=== PATIENT | male | born 1995 | race Caucasian/White ===

== ENCOUNTER 2017-11-24 23:31 | Emergency (ER) | payer OTHER ==
[~2017-11-24] VITALS: Ht 182.9 cm; Wt 79.2 kg
[2017-11-24 23:36] VITALS: TEMP 36.7; Ht 182.9 cm; Wt 79.2 kg
[2017-11-24] MEDS ORDERED: CEFTRIAXONE SOD 350MG/ML 1 GM VIAL IM ONE (23:45)
[2017-11-25] MEDS ORDERED: LORAZEPAM 2 MG/ML 1 ML VIAL IV STA (00:01)
[2017-11-25 00:10] VITALS: O2SAT 97
[2017-11-25 00:18] LABS: BASO % 0.4 %; BASO ABS # 0.03 K/uL (0-0.2); EOS % 4.8 %; EOS ABS # 0.39 K/uL (0-0.5); HEMATOCRIT 42.3 % (42-52); HEMOGLOBIN 14.6 g/dL (14.0-18.0); IG# 0.02 K/uL (0.00-0.02); LYMPH % 27.7 %; LYMPH ABS # 2.26 K/uL (1.2-3.4); MEAN CELL VOLUME 92.2 fL (80-100); MEAN CORPUSCULAR HEMOGLOBIN 31.8 pg (25-34); MEAN CORPUSCULAR HGB CONC 34.5 g/dl (32-36); MEAN PLATELET VOLUME 10.5 fL (7.4-10.4); MONO % 8.6 %; NEUT % 58.3 %; NEUT ABS # 4.76 K/uL (1.4-6.5); PLATELET COUNT 262 K/uL (130-400); RED CELL DISTRIBUTION WIDTH CV 12.9 % (11.5-14.5); RED CELL DISTRIBUTION WIDTH SD 43.1 fL (36.4-46.3); WHITE BLOOD COUNT 8.16 K/uL (4.8-10.8)
[2017-11-25 00:26] LABS: ALBUMIN 4.4 gm/dl (3.4-5.0); ALT/SGPT 22 U/L (12-78); AST/SGOT 19 U/L (15-37); BLOOD UREA NITROGEN 9 mg/dl (7-18); CALCIUM 9.4 mg/dl (8.5-10.1); CARBON DIOXIDE 25 mmol/L (21-32); CREATININE 1.09 mg/dl (0.60-1.40); GLUCOSE 93 mg/dl (70-99); POTASSIUM 3.4 mmol/L (3.5-5.1); SODIUM 141 mmol/L (136-145)
[2017-11-25 00:37] LABS: ALKALINE PHOSPHATASE 139 U/L (45-117); CKMB 1.8 ng/ml (0.5-3.6); TOTAL PROTEIN 8.1 gm/dl (6.4-8.2)
[2017-11-25 00:54] VITALS: BP 120/60; PULSE 68; O2SAT 98
--- NOTE | 2017-11-25 05:08 | EMERGENCY ROOM VISIT NOTE ---
History Report prepared by Cassidy: Venus Lerma Under the Supervision of: Dr. Janie Ortiz D.O. First contact with patient: 23:40 Chief Complaint: CARDIAC ASSESSMENT Stated Complaint: TIGHTNESS IN CHEST History of Present Illness The patient is a 22 year old male who presents to the Emergency Room for a cardiac assessment secondary to chest tightness that began a few weeks ago. The patient states that his discomfort is usually in the middle of his chest. He notes that during his episodes his hands begin to tingle and he feels anxious. The patient reports that he went to urgent care a couple weeks ago, noting that the doctor suggested he might have a heart murmur. He notes that he has an appointment with a instrumentation supervisor and will be getting an ultrasound in 2 days. The patient states that he has a family history hypertension, CHF, heart murmurs , and heart attack. He notes that he consumes a lot of caffeine, stating it is mostly from coffee and energy drinks. The patient states that his symptoms seem to be random, but occur mostly on days after he has been drinking. He reports that he drinks 3-4 times a week, noting that the last time he consumed alcohol was last night. The patient denies any drug use. He had a chest x-ray performed at Urgent Care, which had normal results. Source of History: patient Onset: several weeks ago Position: chest Quality: other (chest tightness) Timing: other (persistent) Associated Symptoms: + chest pain (middle of chest) Note: Associated symptoms include hands tingling and feeling anxious. Review of Systems See HPI for pertinent positives & negatives. A total of 10 systems reviewed and were otherwise negative. Past Medical & Surgical Medical Problems: (1) No Known Active Medical Problems Family History FH: CHF (congestive heart failure) FH: heart attack Heart disease Heart murmur Social History Smoking Status: Never Smoker Alcohol Use: heavy (3-4) Drug Use: none Marital Status: single Housing Status: lives with roommate Occupation Status: student Current/Historical Medications No Active Prescriptions or Reported Meds Allergies Coded Allergies: Amoxicillin (Verified Allergy, Unknown, HIVES, 11/25/17) Physical Exam Vital Signs Date Time Temp Pulse Resp B/P (MAP) Pulse Ox O2 Delivery O2 Flow Rate FiO2 11/25/17 00:54 68 16 120/60 98 Room Air 11/25/17 00:10 97 Room Air 1/29/18 00:10 98 Room Air 11/25/17 00:10 69 20 127/82 97 Room Air 11/25/17 00:09 65 11/24/17 23:36 36.7 77 18 146/86 97 Room Air Physical Exam HEENT: Head - normocephalic and atraumatic Pupils are equal, round, and reactive to light. Extraocular eye muscles are intact, and sclera are anicteric. Nose - moist nasal mucosa without discharge. Mouth - moist buccal mucosa. Oropharynx is nonerythematous and there is no tonsillar exudate or edema noted. Neck: Supple; no JVD, nuchal rigidity, cervical lymphadenopathy, or auscultated bruits. Heart: Regular rate and rhythm. There is a normal S1 and S2 with no murmurs, clicks, or gallops appreciated. Lungs: Clear to auscultation bilaterally with no wheezes, rales, or rhonchi. Abdomen: Soft, completely nontender, nondistended, with good bowel sounds. There are no palpable pulsatile masses or hepatosplenomegaly. There is no guarding, rigidity, or rebound noted. Extremities: No evidence of cyanosis, clubbing, or edema. There are easily palpable peripheral pulses. Skin: warm and dry with good turgor and no rashes. Medical Decision & Procedures Laboratory Results 11/24/17 23:50 Red Blood Count 4.59, Mean Corpuscular Volume 92.2, Mean Corpuscular Hemoglobin 31.8, Mean Corpuscular Hemoglobin Concent 34.5, Mean Platelet Volume 10.5, Neutrophils (%) (Auto) 58.3, Lymphocytes (%) (Auto) 27.7, Monocytes (%) (Auto) 8.6, Eosinophils (%) (Auto) 4.8, Basophils (%) (Auto) 0.4, Neutrophils # (Auto) 4.76, Lymphocytes # (Auto) 2.26, Monocytes # (Auto) 0.70, Eosinophils # (Auto) 0.39, Basophils # (Auto) 0.03 11/24/17 23:50 Test 11/24/17 23:50 White Blood Count 8.16 K/uL (4.8-10.8) Red Blood Count 4.59 M/uL (4.7-6.1) Hemoglobin 14.6 g/dL (14.0-18.0) Hematocrit 42.3 % (42-52) Mean Corpuscular Volume 92.2 fL (80-100) Mean Corpuscular Hemoglobin 31.8 pg (25-34) Mean Corpuscular Hemoglobin Concent 34.5 g/dl (32-36) Platelet Count 262 K/uL (130-400) Mean Platelet Volume 10.5 fL (7.4-10.4) Neutrophils (%) (Auto) 58.3 % Lymphocytes (%) (Auto) 27.7 % Monocytes (%) (Auto) 8.6 % Eosinophils (%) (Auto) 4.8 % Basophils (%) (Auto) 0.4 % Neutrophils # (Auto) 4.76 K/uL (1.4-6.5) Lymphocytes # (Auto) 2.26 K/uL (1.2-3.4) Monocytes # (Auto) 0.70 K/uL (0.11-0.59) Eosinophils # (Auto) 0.39 K/uL (0-0.5) Basophils # (Auto) 0.03 K/uL (0-0.2) RDW Standard Deviation 43.1 fL (36.4-46.3) RDW Coefficient of Variation 12.9 % (11.5-14.5) Immature Granulocyte % (Auto) 0.2 % Immature Granulocyte # (Auto) 0.02 K/uL (0.00-0.02) Anion Gap 11.0 mmol/L (3-11) Est Creatinine Clear Calc Drug Dose 117.7 ml/min Estimated GFR () 111.9 Estimated GFR (Non- 96.5 BUN/Creatinine Ratio 7.9 (10-20) Calcium Level 9.4 mg/dl (8.5-10.1) Total Bilirubin 0.2 mg/dl (0.2-1) Direct Bilirubin < 0.1 mg/dl (0-0.2) Aspartate Amino Transf (AST/SGOT) 19 U/L (15-37) Alanine Aminotransferase (ALT/SGPT) 22 U/L (12-78) Alkaline Phosphatase 139 U/L (45-117) Total Creatine Kinase 246 U/L (39-308) Creatine Kinase MB 1.8 ng/ml (0.5-3.6) Creatine Kinase MB Ratio 0.7 (0-3.0) Troponin I < 0.015 ng/ml (0-0.045) Total Protein 8.1 gm/dl (6.4-8.2) Albumin 4.4 gm/dl (3.4-5.0) Thyroid Stimulating Hormone (TSH) 1.770 uIu/ml (0.300-4.500) Laboratory results per my review. Medications Administered Medications (Trade) Dose Ordered Sig/Diana Route Start Time Stop Time Status Last Admin Dose Admin Lorazepam (Ativan Inj) 1 mg NOW STAT IV 11/25/17 00:01 11/25/17 00:03 DC 11/25/17 00:07 1 MG Procedure 0001: Ordered Lorazepam 1mg IV. ECG Indication: other (chest tightness) Rate (beats per minute): 94 Rhythm: normal sinus Findings: no acute ischemic change, no ectopy ED Course 3768: Past medical records reviewed. The patient was evaluated in room B3. A complete history and physical exam was performed. An IV lock was initiated and labs are drones above. A twelve-lead EKG was obtained. The patients electrocardiogram was interpreted by me. 0001: Ordered Lorazepam 1mg IV. 0042: Upon reevaluation, the patient is feeling significantly better. I discussed findings and results with him. He verbalized agreement of the treatment plan. The patient was discharged home. Medical Decision The patient is a 22 year old male who presents to the ED with chest tightness. Differential diagnosis includes alcohol withdrawal, holiday heart, anxiety, pericarditis, cardiac ischemia, GERD, and cardiac dysrhythmia. His laboratory results showed: no leukocytosis, stable H&H, normal TSH, normal LFT's, negative cardiac enzymes, normal renal function and glucose. This is a 22-year-old male patient who presents to the emergency department with a tightness in his left chest. The patient has been told in the past that he has a heart murmur. He is scheduled to have an echo in 2 days to evaluate this further. The patient notes that he isn't having increased episodes of chest tightness, specifically after a night of heavy drinking. He admits that he becomes more anxious about the symptoms and then the chest tightness worsens. He had a normal-appearing EKG and negative cardiac enzymes. I encouraged the patient to avoid alcohol use over the next 2 weeks and see how he feels. He should proceed with the echocardiogram to be performed on Saturday. Medication Reconcilliation Current Medication List: was personally reviewed by me Blood Pressure Screening Patient's blood pressure: Normal blood pressure Impression Primary Impression: Chest tightness Scribe Attestation The scribe's documentation has been prepared under my direction and personally reviewed by me in its entirety. I confirm that the note above accurately reflects all work, treatment, procedures, and medical decision making performed by me. Departure Information Dispostion Home / Self-Care Prescriptions No Active Prescriptions or Reported Meds Referrals Inge Flores D.O. (PCP) Forms IMPORTANT VISIT INFORMATION Patient Instructions My [facility] [employer] Additional Instructions Over the next 2 weeks, I would avoid any alcohol use. I would do no upper body work at the gym to see how this effects your episodes of chest tightness. You should follow through with your Echo(cardiac ultrasound) on Saturday.
== END 2017-11-25 01:13 | disposition home or self-care (01) ==
LOC: C.EDB 23:31
DX: R07.89 Other chest pain (principal); Z82.49 Family history of ischemic heart disease and other diseases of the circulatory system; R01.1 Cardiac murmur, unspecified

== ENCOUNTER → 2017-11-26 | Outpatient (CLI) | payer OTHER ==
--- NOTE | 2017-11-26 14:21 | ECHOCARDIOGRAM REPORT ---
*NOTICE TO RECEIVING DEMOCRAT AGENCY This information is strictly Confidential and protected under [place] law. [place] law prohibits you from making any further disclosure of this information unless further disclosure is expressly permitted by the written consent of the person to whom it pertains or is authorized by law. A general authorization for the release of medical or other information is not sufficient for this purpose. Hospital accepts no responsibility if the information is made available to any other person, INCLUDING THE PATIENT. Interpretation Summary * Name: MARY ARVIZU Study Date: 11/26/2017 12:44 PM BP: 127/82 mmHg * Patient Location: [facility] HR: 65 * : 1995 (M/d/yyyy) Gender: Male Height: 72 in * Age: 22 yrs Ethnicity: CA Weight: 176 lb * Ordering Physician: Inge Flores * Referring Physician: Inge Flores D.O. * Performed By: Rhianna Murrell RCS * * Reason For Study: HEART MURMUR * BSA: 2.0 m2 * -- Conclusions -- * 1. Normal LV size and wall thickness. * 2. Normal LV systolic function. LVEF 55-60%. No regional wall motion abnormalities. * 3. Normal RV size and function. * 4. Borderline anterior mitral valve leaflet prolapse with trace mitral regurgitation. No other significant valvular pathology. * 5. No prior studies for comparison. Procedure Details * A complete two-dimensional transthoracic echocardiogram was performed (2D, M-mode, Doppler and color flow Doppler). Left Ventricle * The left ventricle is grossly normal size. * There is normal left ventricular wall thickness. * Ejection Fraction = 55-60%. * No regional wall motion abnormalities noted. Right Ventricle * The right ventricle is grossly normal size. * The right ventricular systolic function is normal as assessed by tricuspid annular plane systolic excursion (TAPSE) (normal >1.5 cm). Atria * The left atrial size is normal. * Right atrial size is normal. * No ASD detected; PFO is not assessed. Mitral Valve * The mitral valve leaflets appear normal. There is no evidence of stenosis, fluttering, or prolapse. * There is borderline mitral valve prolapse. * There is no mitral valve stenosis. * There is trace mitral regurgitation. Tricuspid Valve * Grossly normal. Slight apical displacement of septal tricuspid leaflet. No other evidence of Ebstein's * There is trace tricuspid regurgitation. Aortic Valve * The aortic valve opens well. * The aortic valve is trileaflet. * No hemodynamically significant valvular aortic stenosis. * There is no significant aortic regurgitation. Pulmonic Valve * The pulmonic valve is not well seen, but is grossly normal. * There is no pulmonic valvular stenosis. * There is no significant pulmonary regurgitation. Great Vessels * The aortic root and proximal ascending aorta are normal sized. Pericardium/Pleural * There is no pericardial effusion. Great Vessels * IVC >2.1, >50% change with respiration. Est RA 8 mmHg. MMode 2D Measurements and Calculations IVSd 0.90 cm IVSs 1.3 cm LVIDd 5.2 cm LVIDs 3.4 cm LVPWd 0.81 cm LVPWs 1.5 cm IVS/LVPW 1.1 FS 34.3 % EDV(Teich) 126.7 ml ESV(Teich) 46.8 ml EF(Teich) 63.0 % EDV(cubed) 136.6 ml ESV(cubed) 38.7 ml EF(cubed) 71.7 % % IVS thick 45.2 % % LVPW thick 88.5 % LV mass(C)d 155.6 grams LV mass(C)dI 77.1 grams/m\S\2 LV mass(C)s 168.3 grams LV mass(C)sI 83.4 grams/m\S\2 SV(Teich) 79.8 ml SI(Teich) 39.6 ml/m\S\2 SV(cubed) 98.0 ml SI(cubed) 48.5 ml/m\S\2 Ao root diam 2.8 cm Ao root area 6.2 cm\S\2 ACS 2.1 cm LA dimension 3.1 cm LA/Ao 1.1 LVOT diam 2.0 cm LVOT area 3.1 cm\S\2 LVAd ap4 46.3 cm\S\2 LVLd ap4 10.0 cm EDV(MOD-sp4) 179.1 ml EDV(sp4-el) 181.8 ml LVAs ap4 28.4 cm\S\2 LVLs ap4 7.9 cm ESV(MOD-sp4) 82.6 ml ESV(sp4-el) 86.0 ml EF(MOD-sp4) 53.9 % EF(sp4-el) 52.7 % LVAd ap2 48.7 cm\S\2 LVLd ap2 10.2 cm EDV(MOD-sp2) 193.9 ml EDV(sp2-el) 196.8 ml LVAs ap2 29.9 cm\S\2 LVLs ap2 8.3 cm ESV(MOD-sp2) 88.7 ml ESV(sp2-el) 90.8 ml EF(MOD-sp2) 54.3 % EF(sp2-el) 53.9 % LVLd %diff 1.8 % EDV(MOD-bp) 189.3 ml LVLs %diff 4.9 % ESV(MOD-bp) 87.6 ml EF(MOD-bp) 53.7 % SV(MOD-sp4) 96.5 ml SI(MOD-sp4) 47.9 ml/m\S\2 SV(MOD-sp2) 105.2 ml SI(MOD-sp2) 52.1 ml/m\S\2 SV(MOD-bp) 101.7 ml SI(MOD-bp) 50.4 ml/m\S\2 SV(sp4-el) 95.8 ml SI(sp4-el) 47.5 ml/m\S\2 SV(sp2-el) 106.0 ml SI(sp2-el) 52.5 ml/m\S\2 Doppler Measurements and Calculations MV E max estefania 105.2 cm/sec MV A max estefania 37.7 cm/sec MV E/A 2.8 MV P1/2t max estefania 113.2 cm/sec MV P1/2t 62.4 msec MVA(P1/2t) 3.5 cm\S\2 MV dec slope 531.7 cm/sec\S\2 MV dec time 0.27 sec Ao V2 max 135.9 cm/sec Ao max PG 7.4 mmHg Ao max PG (full) 1.7 mmHg PIA(V,A) 2.7 cm\S\2 PIA(V,D) 2.7 cm\S\2 LV V1 max PG 5.6 mmHg LV V1 max 118.7 cm/sec PA V2 max 100.3 cm/sec PA max PG 4.0 mmHg
== END | disposition home or self-care (01) ==
LOC: C.CPL 12:40
PROVIDERS: ATTEND Family Medicine
DX: R01.1 Cardiac murmur, unspecified (principal)

== ENCOUNTER → 2017-12-19 | Outpatient (CLI) | payer OTHER ==
--- NOTE | 2017-12-19 09:19 | DIAGNOSTIC IMAGING REPORT ---
L SHOULDER MIN 2 VIEWS ROUTINE CLINICAL HISTORY: PAIN IN L SHOULDER COMPARISON: None. DISCUSSION: No fractures or dislocations are visualized. There are no visible articular calcifications. IMPRESSION: Unremarkable conventional radiographic evaluation of the left shoulder Electronically signed by: Julian Cardenas M.D. 12/19/2017 9:17 AM Dictated Date/Time: 12/19/2017 9:17 AM
== END | disposition home or self-care (01) ==
LOC: C.RAD 08:45
PROVIDERS: ATTEND Family Medicine
DX: M25.512 Pain in left shoulder (principal)